=== PATIENT | female | born 1970 | race Caucasian/White ===

== ENCOUNTER 2019-09-02 07:59 | Outpatient (CLI) | payer BC, SELFPAY ==
--- NOTE | ~2019-09-02 | MM_ITS ---
EXAMINATION: MM screening [facility] BI w nel HISTORY: Screening mammogram TECHNIQUE: Craniocaudal and mediolateral oblique 3-D tomosynthesis images were obtained and synthetic 2-D images were generated. CAD analysis was submitted and interpreted. COMPARISON: Comparison to multiple prior studies sequentially, with oldest reviewed study dated 11/2012. BREAST PARENCHYMAL COMPOSITION: There are scattered areas of fibroglandular density. FINDINGS: The right breast is stable without evidence for malignancy. There is a developing cluster o f punctate calcifications in the upper outer quadrant of the left breast. IMPRESSION: 1. Developing cluster of punctate calcifications upper outer quadrant of the left breast. 2. Magnification views are recommended. BI-RADS Category 0: Incomplete: Needs additional imaging evaluation. Reviewed, dictated and finalized at location A. ING DIRECTOR IMPRESSION: 1. Developing cluster of punctate calcifications upper outer quadrant of the le ft breast. 2. Magnification views are recommended. BI-RADS Category 0: Incomplete: Needs additional imaging evaluation.
== END 2019-09-02 08:00 | disposition home or self-care (01) ==
PROVIDERS: PCP Family Medicine Adolescent Medicine; Visit Provider Family Medicine Adolescent Medicine
DX: Z12.31 Encounter for screening mammogram for malignant neoplasm of breast (principal); R92.8 Other abnormal and inconclusive findings on diagnostic imaging of breast
CPT/HCPCS: 77063; 77067

== ENCOUNTER 2019-09-28 12:42 | Outpatient (CLI) | payer BC, SELFPAY ==
--- NOTE | ~2019-09-28 | MMUS_ITS ---
EXAMINATION: MM diagnostic mammo unilat LT, US breast LT complete HISTORY: Follow-up left breast asymmetry TECHNIQUE: Additional 3-D tomosynthesis images of the left breast were performed and synthetic 2-D im ages were generated. CAD analysis was submitted and interpreted. High resolution left breast ultrasou nd was performed. COMPARISON: Comparison to multiple prior studies sequentially, with oldest reviewed study dated 07/2013. FINDINGS: MAMMOGRAPHIC FINDINGS: The breasts are heterogenously dense, which may obscure small masses. Left breast calcifications have a benign appearance. There are no suspicious masses, calcifications or architectural distortion in t he left breast to suggest malignancy. ULTRASOUND: High-resolution Limited left breast ultrasound: Normal heterogeneous echotexture without focal mass.. IMPRESSION: 1. No evidence for malignancy in the left breast. 2. Routine yearly screening mammogram and regular clinical breast examination are recommended. BI-RADS Category 2: Benign finding(s). Reviewed, dictated and finalized at location A. IMPRESSION: 1. No evidence for malignancy in the left breast. 2. Routine yearly screening mammogram and regular clinical breast examination a re recommended. BI-RADS Category 2: Benign finding(s).
== END 2019-09-28 12:43 | disposition home or self-care (01) ==
PROVIDERS: PCP Family Medicine Adolescent Medicine; Visit Provider Family Medicine Adolescent Medicine
DX: R92.8 Other abnormal and inconclusive findings on diagnostic imaging of breast (principal)
CPT/HCPCS: 76641; 77065

== ENCOUNTER 2020-11-23 08:28 | Outpatient (CLI) | payer BC, SELFPAY ==
--- NOTE | ~2020-11-23 | MM_ITS ---
EXAMINATION: MM screening [facility] BI w nel HISTORY: Screening mammogram TECHNIQUE: Craniocaudal and mediolateral oblique 3-D tomosynthesis images were obtained and synthetic 2-D images were generated. CAD analysis was submitted and interpreted. COMPARISON: 09/28/2019 diagnostic left mammogram and complete left breast ultrasound examination 09/02/2019, 08/06/2018, 06/12/2017 bilateral digital screening mammogram examinations BREAST PARENCHYMAL COMPOSITION: There are scattered areas of fibroglandular density. FINDINGS: There is no evidence of suspicious mass, calcification, or architectural distortion to sugg est malignancy in either breast. There has been no suspicious interval change. IMPRESSION: 1. No mammographic evidence of malignancy. 2. Recommend routine screening mammography in one year. BI-RADS Category 1: Negative Reviewed, dictated and finalized at location A.
== END 2020-11-23 08:29 | disposition home or self-care (01) ==
PROVIDERS: PCP Family Medicine Adolescent Medicine; Visit Provider Family Medicine Adolescent Medicine
DX: Z12.31 Encounter for screening mammogram for malignant neoplasm of breast (principal)
CPT/HCPCS: 77063; 77067

== ENCOUNTER 2022-02-14 07:23 | Outpatient (CLI) | payer BC, SELFPAY ==
--- NOTE | ~2022-02-14 | MM_ITS ---
EXAMINATION: MM screening [facility] BI w nel HISTORY: Screening mammogram TECHNIQUE: Craniocaudal and mediolateral oblique 3-D tomosynthesis images were obtained and synthetic 2-D images were generated. CAD analysis was submitted and interpreted. COMPARISON: 11/23/2020, 09/28/2019, 09/02/2019 BREAST PARENCHYMAL COMPOSITION: There are scattered areas of fibroglandular density. FINDINGS: Scattered benign-appearing calcifications are present. There is no suspicious mass, calcifi cation, or architectural distortion to suggest malignancy in either breast. There has been no suspici ous interval change. IMPRESSION: 1. No mammographic evidence of malignancy. 2. Recommend routine screening mammography in one year. BI-RADS Category 2: Benign finding(s). Reviewed, dictated and finalized at location A.
== END 2022-02-14 07:24 | disposition home or self-care (01) ==
PROVIDERS: PCP Family Medicine Adolescent Medicine; Visit Provider Family Medicine Adolescent Medicine
DX: Z12.31 Encounter for screening mammogram for malignant neoplasm of breast (principal)
CPT/HCPCS: 77063; 77067

== ENCOUNTER → 2022-09-23 10:45 | Outpatient (CLI) | payer BC, SELFPAY | PROVIDERS: PCP Family Medicine Adolescent Medicine; Visit Provider Family Medicine Adolescent Medicine | DX: M25.561 Pain in right knee (principal); M25.562 Pain in left knee | CPT/HCPCS: 73562 ==

== ENCOUNTER 2023-03-11 11:15 | Outpatient (CLI) | payer BC, SELFPAY ==
--- NOTE | ~2023-03-11 | MMUS_ITS ---
EXAMINATION: MM diagnostic [facility] BI w nel, US breast LT limited HISTORY: Palpable lump of the lower left breast TECHNIQUE: Craniocaudal, mediolateral, and mediolateral oblique 3-D tomosynthesis images of the breas ts were performed and synthetic 2-D images were generated. CAD analysis was submitted and interpreted . High resolution limited left breast ultrasound was performed. COMPARISON: 02/14/2022, 11/23/2020, 09/28/2019, 09/02/2019 BREAST PARENCHYMAL COMPOSITION: There are scattered areas of fibroglandular density. FINDINGS: MAMMOGRAPHIC FINDINGS: Right breast: No suspicious mass, calcification, or architectural distortion are identified to sugges t malignancy. There has been no suspicious interval change. Left breast: There is a 5 mm x 4 mm oval, circumscribed, equal density mass in the anterior third of the breast at the 6:00 location, 4 cm from the nipple corresponding to the palpable abnormality of co ncern. No suspicious calcification or architectural distortion are identified. ULTRASOUND: There is a 5 mm x 4 mm oval, circumscribed, parallel, anechoic mass with no posterior features or int ernal vascularity at the 6:00 location, 4 cm from the nipple, consistent with a cyst. IMPRESSION: 1. No mammographic or sonographic evidence of malignancy. 2. Recommend routine screening mammography in one year. BI-RADS Category 2: Benign finding(s). Reviewed, dictated and finalized at location B. IMPRESSION: 1. No mammographic or sonographic evidence of malignancy. 2. Recommend routine screening mammography in one year. BI-RADS Category 2: Benign finding(s).
== END 2023-03-11 11:16 | disposition home or self-care (01) ==
PROVIDERS: PCP Family Medicine Adolescent Medicine; Visit Provider Obstetrics & Gynecology
DX: N63.20 Unspecified lump in the left breast, unspecified quadrant (principal); R92.2 Inconclusive mammogram
CPT/HCPCS: 76642; 77062; 77066; G0279

== ENCOUNTER 2024-03-17 15:41 | Outpatient (CLI) | payer BC, SELFPAY ==
--- NOTE | ~2024-03-17 | MM_ITS ---
EXAMINATION: MM screening [facility] BI w nel HISTORY: Screening TECHNIQUE: Craniocaudal and mediolateral oblique 3-D tomosynthesis images were obtained and synthetic 2-D images were generated. CAD analysis was submitted and interpreted. COMPARISON: Comparison to multiple prior studies sequentially, with oldest reviewed study dated 08/06. BREAST PARENCHYMAL COMPOSITION: Not dense: There are scattered areas of fibroglandular density. FINDINGS: There is no evidence of suspicious mass, calcification, or architectural distortion to sugg est malignancy in either breast. There has been no suspicious interval change. IMPRESSION: 1. No mammographic evidence of malignancy. 2. Recommend routine screening mammography in one year. BI-RADS Category 1: Negative Reviewed, dictated and finalized at location B.
== END 2024-03-17 15:42 | disposition home or self-care (01) ==
LOC: ANHIMG 15:43
PROVIDERS: PCP Family Medicine Adolescent Medicine; Visit Provider Obstetrics & Gynecology
DX: Z12.31 Encounter for screening mammogram for malignant neoplasm of breast (principal)
CPT/HCPCS: 77063; 77067

== ENCOUNTER 2024-07-29 07:29 | Outpatient (CLI) | payer BC, SELFPAY ==
--- NOTE | ~2024-07-29 | XR_ITS ---
EXAM: XR shoulder LT min 2V DATE: 07/29/2024 07:53 HISTORY: Left shoulder pain . COMPARISON: None available. FINDINGS: Normal mineralization. No fracture or dislocation. No lytic or blastic lesion. Joint space s are maintained. No erosion or periosteal change. Soft tissues within normal limits. Coronary artery stent. IMPRESSION: Unremarkable left shoulder radiograph findings. Reviewed, dictated and finalized at location K. SEAM MACHINE OPERATOR
== END 2024-07-29 07:30 | disposition home or self-care (01) ==
PROVIDERS: PCP Family Medicine Adolescent Medicine; Visit Provider Family Medicine Adolescent Medicine
DX: M25.512 Pain in left shoulder (principal)
CPT/HCPCS: 73030

== ENCOUNTER 2025-04-02 11:52 | Outpatient (CLI) | payer BC, SELFPAY ==
--- NOTE | ~2025-04-02 | XR_ITS ---
XR hand RT 2V 04/02/2025 12:04 Indication: Right hand pain Procedure: 2 views right hand Comparison: No prior studies for comparison. Findings: No fracture, subluxation or dislocation. No significant soft tissue abnormality. No foreign bodies. Impression: 1: No significant bone or joint abnormality. Reviewed, dictated and finalized at location O. Impression: 1: No significant bone or joint abnormality.
== END 2025-04-02 11:53 | disposition home or self-care (01) ==
LOC: MICIMG 11:53
PROVIDERS: PCP Nurse Practitioner; Visit Provider Nurse Practitioner
DX: M79.641 Pain in right hand (principal)
CPT/HCPCS: 73120

== ENCOUNTER 2025-05-25 14:44 | Outpatient (CLI) | payer BC, SELFPAY ==
--- NOTE | ~2025-05-25 | MM_ITS ---
EXAMINATION: MM screening raul BI w nel HISTORY: Screening TECHNIQUE: Craniocaudal and mediolateral oblique 3-D tomosynthesis images were obtained and synthetic 2-D images were generated. CAD analysis was submitted and interpreted. COMPARISON: Comparison to multiple prior studies sequentially, with oldest reviewed study dated 09/02/2019. BREAST PARENCHYMAL COMPOSITION: Not dense: There are scattered areas of fibroglandular density. FINDINGS: There are new masses of the left breast involving the lower inner quadrants in the lower outer quadrant. The right breast is stable without evidence for malignancy. IMPRESSION: 1. New left breast masses. 2. Additional mammographic views and possible breast ultrasound are recommended. BI-RADS Category 0: Incomplete: Needs additional imaging evaluation. Reviewed, dictated and finalized at location B. ECOLOGICAL ONCOLOGIST IMPRESSION: 1. New left breast masses. 2. Additional mammographic views and possible breast ultrasound are recommended . BI-RADS Category 0: Incomplete: Needs additional imaging evaluation.
--- OUTSIDE RECORDS SUMMARY | 2025-05-25 19:07 | XMS_ITS | Clinical Summary ---
Author Organization [facility] [employer] Address [address] [place] [address] Care Team Providers Care Disk Recoater Name Role Phone Unavailable Primary Care Provider Unavailabl e Source Comments [facility] [employer],non-owned Affiliates and Associated Physician Practices is amultiple site organization consisting of ambulatory clinics and hospital sitesin [place], [place] and [place]. This disclosure is being madepursuant to the Care Everywhere program and may not contain all information available regarding this patient. Last updated 18.[facility] [employer] Medications * Be aware that medications may not be up to date on this document. Alwaysverify current medications with the patient. metoprolol tartrate (LOPRESSOR) 25 MG tablet TAKE ONE-HALF TABLET BY MOUTH TWICE A DAY 11/28/2020 Active rosuvastatin (CRESTOR) 10 MG tablet TAKE ONE TABLET BY MOUTH ONCE DAILY 03/17/2020 Active zinc gluconate 50 MG tablet Take 50 mg by mouth once daily Active amLODIPine (NORVASC) 5 MG tablet Take 5 mg by mouth once daily Active ASPIRIN 81 PO Active Social History Tobacco Use Types Packs/Day Years Used Date Smoking Tobacco: Never Assessed Comments Unknown Sex and Gender Information Value Date Recorded Sex Assigned at Not on file Legal Sex Female 7:19 PM CDT Gender Identity Not on file Sexual Orientation Not on file Last Filed Vital Signs Vital Sign Reading Time Taken Comments Blood Pressure - - Pulse 72 02/08/2021 10:09 AM CDT Temperature 36.7 C (98 F) 02/08/2021 10:09 AM CDT Respiratory Rate 14 02/08/2021 10:09 AM CDT Oxygen Saturation 98% 02/08/2021 10:09 AM CDT Inhaled Oxygen Concentration - - Weight 64.4 kg (142 lb) 02/08/2021 10:09 AM CDT Height 165.1 cm (5' 5) 02/08/2021 10:09 AM CDT Body Mass Index 23.63 02/08/2021 10:09 AM CDT Plan of Treatment Health Maintenance Due Date Last Done Comments COLOGUARD (AGES 45-75) - COL ON CA SCREENING 1968 COLON MONITORING 1968 COLONOSCOPY - COLON CA SCREENING 1968 CT COLONOGRAPHY - COLON CA SCREENING 1968 Colorectal Cancer Screening 1968 FIT - COLON CA SCREENING 1968 FLEX SIG - COLON CA SCREENING 1968 MAMMOGRAM 1968 HIV SCREENING 1983 HEPATITIS C SCREENING 06/29/1986 DTAP/TDAP/TD VACCINES (1 - Tdap) 1987 HEPATITIS B VACCINE (1 of 3 - 19+ 3-dose series) 1987 PNEUMOCOCCAL VACCINE 50+ (1 of 1 - PCV) 2018 ZOSTER VACCINE (1 of 2) 2018 DEPRESSION SCREENING 07/12/2024 COVID-19 VACCINE (3 - 2024-2 6 season) 2025 10/05/2020, 09/12/2020 INFLUENZA VACCINE (#1) 2025 05/20/2020 HIB VACCINE Aged Out No longer eligi ble based on patient's age to complete this topic HPV VACCINE Aged Out No longer eligi ble based on patient's age to complete this topic MENINGOCOCCAL (Group B) VACCINE SHARED DECISION-MAKING Aged Out No longer eligible based on patient's age to complete this topic MENINGOCOCCAL GROUPS A/C/Y/W VACCINE Aged Out No longer eligible b ased on patient's age to complete this topic Insurance [employer]
--- OUTSIDE RECORDS SUMMARY | 2025-05-25 19:07 | XMS_ITS | Clinical Summary ---
Author Organization [facility] [place] [address] Address [address] [place] [address] Care Team Providers Care Casino Supervisor Name Role Phone Binu Garay MD Primary Care Prov ider Allergies Active Allergy Reactions Criticality Noted Date Comments Codeine Nausea only Low Medications aspirin 81 mg tablet take 1 tablet by oral route every day 0 0 6 Active nitroglycerin (NITROSTAT) 0.[address] 1 tablet by sublingual route at the 1st sign of attack; may repeat every 5 min until relief; if pain persists after 3 tablets in 15 min, prompt medical attention is recommended 0 0 6 Active multivitamin-ir on-folic acid (CENTRUM COMPLETE) 18-400 mg-mcg tablet take 1 tablet by oral route every day with food 0 0 6 Active amLODIPine (NORVASC) 5 mg tablet take 1 tablet by oral route every day 0 0 7 Active zinc 50 mg tablet Take 50 mg by mouth daily Active estradioL (ESTRACE) 0.01 % (0.1 mg/gram) vaginal cream INSERT 0.5 GRAMS PER VAGINA NIGHTLY FOR 30 DAYS, THEN 3 TIMES PER WEEK 2 Active magnesium gluconate (MAGONATE) 27.5 mg magne- sium (500 mg) tabletIndicatio ns:hypomagnesem ia Take 1 tablet (500 mg total) by mouth 2 (two) times a day Active rosuvastatin (CRESTOR) 10 mg tablet TAKE 1 TABLET(10 MG) BY MOUTH DAILY 90 tablet 2 5 Active metoprolol tartrate (LOPRESSOR) 25 mg immediate release tablet TAKE 1/2 TABLET(12.5 MG) BY MOUTH TWICE DAILY 90 tablet 1 5 Active Active Problems Problem Noted Date Diagnosed Date History of COVID-19 01/28/2022 Migraine 02/14/2020 Presence of stent in coronary artery 01/10/2019 Hyperlipidemia LDL goal <70 06/01/2017 Raynaud's phenomenon 11/24/2016 Overview (12/04/2016): Raynaud's phenomenon without gangrene Chest pain on exertion 04/30/2016 Overview (10/16/2016): Chest pain on exertion Coronary artery disease of n ative artery of [place] heart with stable angina pectoris 01/23/2016 Overview (10/14/2016): Coronary artery disease involving [place] coronary artery of [place] heart without angina pectoris Migraine 01/23/2016 Overview (10/15/2016): Migraine without status migrainosus, not intractable, unspecified migraine type Dizziness 01/23/2016 Overview (10/15/2016): Dizziness Essential hypertension 01/23/2016 Overview (10/16/2016): Hypertension, essential Encounters Date Type Department Care Team Description 03/07/2025 1:15 PM CDT Office Visit [facility] [address] [place] [address] Nicko Boles MD Coronary artery disease of [place] artery of [place] heart with stable angina pectoris (Primary Dx); Essential hypertension; Hyperlipidemia LDL goal <70; Raynaud's phenomenon without gangrene from Last 3 Months Medical History Medical History Date Comments Hx Other Medical CAD, HTN, histo ry of migraines; Comments: MAF 01/23/2016 - Family History Medical History Relation Name Comments Hepatitis Father Hepatitis C; Relation Name Status Comments Father Social History Tobacco Use Types Packs/Day Years Used Date Smoking Tobacco: Never Smokeless Tobacco: Never Tobacco Cessation:Counseling Given: Yes Alcohol Use Standard Drinks/Week Comments No 0 (1 standard drink = 0.6 oz pur e alcohol) Comments Unknown Sex and Gender Information Value Date Recorded Sex Assigned at Not on file 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 Gender Identity Not on file Sexual Orientation Not on file Last Filed Vital Signs Vital Sign Reading Time Taken Comments Blood Pressure 110/66 03/07/2025 1:08 PM CDT Pulse 74 03/07/2025 1:08 PM CDT Temperature - - Respiratory Rate - - Oxygen Saturation 95% 03/07/2025 1:08 PM CDT Inhaled Oxygen Concentration - - Weight 67.1 kg (148 lb) 03/07/2025 1:08 PM CDT Height 165.1 cm (5' 5) 03/07/2025 1:08 PM CDT Body Mass Index 24.63 03/07/2025 1:08 PM CDT Plan of Treatment Health Maintenance Due Date Last Done Comments Breast Cancer Screening-Mammogram 1968 Cervical Cancer Screening 1968 Colon Cancer Screening-Colonoscopy 1968 Depression Screening 1968 Hepatitis C Screening 1968 DTaP/Tdap/Td Vaccine (1 - Tdap) 1979 Hepatitis B Screening 1986 Regular Well Visit/Exam 18-64 1986 Pneumococcal vaccine <65 (1 of 2 - PCV) 1987 Zoster Vaccine (1 of 2) 2018 Influenza Vaccine (#1) 2025 7, 04/20/2016, 04/17/2015 Procedures Procedure Name Priority Date/Time Associated Diagnosis Comments POCT LIPID PANEL Routine 03/07/2025 1:11 PM CDT Coronary artery disease of [place] artery of [place] heart with stable angina pectoris Hyperlipidemia LDL goal <70 from Last 3 Months Results * POCT lipid panel (03/07/2025 1:11 PM CDT) Cholesterol, POC 150 <200 MG/DL HDL, POC 60 >=40 mg/dL Triglycerides, POC 81 <=149 mg/dL LDL Cholesterol POC 74 <=129 mg/dL Chol/HDL Ratio, POC 1.2 NONE Non-HDL Cholesterol, POC 90 NONE mg/dL Cholesterol Total, POC 150 30 - 199 mg/dL Capillary blood 03/07/2025 1 :11 PM CDT Nicko Boles MD POINT OF CARE TEST ORDERA RODNEYS Final Result from Last 3 Months Insurance [place] Care Teams Casino Supervisor Relationship Specialty Start Date End Date Binu Garay MD PCP - General 10/09/16
--- OUTSIDE RECORDS SUMMARY | 2025-05-25 19:07 | XMS_ITS | Data Portability ---
Author Organization [facility] Address [address] [place] [address] Care Team Providers Care Traveling Buyer Name Role Phone CANDIE DUNCAN Primary Care Provider Assessment Encounter Date Assessment Date Assessment LastModified by Organization Details LastModified Time 10/01/2021 10/01/2021 Pt and I both uncertain what the substance is in her vagina, however it was removed. discussed estrace cream for atrophy, she is willing to try. script sent WWE overdue, will schedule in 2 mos and FU then. [email or web address] Not available 10/01/2021 14:41:23 03/31/2022 03/31/2022 healthy female exam/menopause patient declines std testing pap done, discussed guidelines mammogram UTD colonoscopy/colo guard due 2024 dexa baseline Encouraged weight bearing exercise and 1500mg daily of Calcium with Vitamin D FU 1 year or prn [email or web address] Not available 04/01/2022 08:52:28 01/13/2023 01/13/2023 Annual gynecological exam performed. Patient will come back in a year unless there are new symptoms. [email or web address] Not available 01/13/2023 17:06:21 02/17/2023 02/17/2023 diagnostic mammo left ordered screening due in april [email or web address] Not available 02/17/2023 17:20:34 02/16/2024 02/16/2024 Annual gynecological exam performed. Patient will come back in a year unless there are new symptoms. [email or web address] Not available 02/16/2024 16:54:31 Plan of Treatment Reminders Order Date Submit Date Provider Last Modified By Organization Details Last Modified Time Details Appointments None recorded . Lab None recorded . Referral None recorded . Procedures None recorded . Surgeries None recorded . Imaging MAMMO, screenin g, unilater al 2022 023 [email or web address] Not available 09:57:49 MAMMO, diagnost ic, unilater al 2022 023 [email or web address] Not available 09:57:19 Medication Orders estradio l 0.01% (0.1 mg/gram) vaginal cream 2021 022 [facility] [id number] [facility], [facility] [place], [address], 2 18:58:17 Estrace 0.01% (0.1 mg/gram) vaginal cream 2021 022 [facility] [id number] In [facility] [address] [place], [address], 2 14:40:16 Patient TargetsNo targets recorded. Patient InstructionsNo instructions recorded. Reason for Referral None Reported. Results Created Date Observation Date Name Description Value Unit Range Abnormal Flag Note LastModifiedBy Organization Detail LastModifiedTime 03/31/20 22 03/31/2022 IMAGE GUIDE D PAP AND HPV REGAR DLESS image guided Pap, HPV regardless of Pap result SEE RESULT S BELOW abnormal CASE REPOR T: Cytol ogy Gynec ologi tao Repor t Case: [id number] Autho andrew norton Provi jany: Bindu Campbell MD Colle cted: 03/31 180 Order ing Locat ion: [place] Patho logy Recei carolyn: 04/01 0123 First Scree n: Lauri vines, Cierra ed, [place] Patho logis t: Kyleigh Silva MD Speci men: Scree baldev Pap - Image d, Cervi x STATE MENT OF ADEQU ACY: Satis facto ry for evalu ation Trans forma tion zone compo nent prese nt FINAL DIAGN OSIS: Epith elial Cell Abnor malit y, Squam ous Cell: Atypi tao Squam ous Cells of Undet ermin ed Desiree roche ce (ASC- [place]). Elect yaneli romo d by Kyleigh Silva MD on 2021 at 12:58 PM ----- ----- ----- ----- ----- ----- ----- ----- ----- ----- ----- ----- ----- ----- ----- ----- ----- ---- HPV RESUL TS: HPV mRNA E6/E7 : No HPV mRNA Detec ansley NOTE: This high risk HPV mRNA assay detec ts fourt een high- risk HPV types (16, 18, 31, 33, 35, 39, 45, 51, 52, 56, 58, 59, 66, 68) witho ut diffe renti ation . COMME NT: Note: This speci men was revie wed by a Cytot echno logis t and/o r Patho logis t (as indic ated in this repor t) after evalu ation using the Thinp rep Imagi ng Syste m. CLINI TAO INFOR MATIO N: Menst rual Statu s: LMP (if appli cable ): Clini tao Histo ry/Pr eviou s Pap: Type of Neopl lico (if appli cable ): Desiree meza Clini tao Findi ngs: Other Histo ry: Hormo sebastián (if appli cable ): SUGGE STED FOLLO W-UP: Follo w up as warra nted, based on curre nt guide lines and indiv idual patie nt consi derat ions. Not Available [facility] [address], [place], [address], 04/06/2022 14:00:46 01/14/20 23 01/13/2023 IMAGE GUIDE D PAP AND HPV REGAR DLESS image guided Pap, HPV regardless of Pap result SEE RESULT S BELOW CASE REPOR T: Cytol ogy Gynec ologi tao Repor t Case: [id number] Autho zebelyssa cierra Provi jany: Camille Pryor, AVANI Osullivan cted: 01/13 1716 Order ing Locat ion: [place] Patho gracia Recei carolyn: 01/14 0203 First Scree n: Lizeth Cline ay, CT Rescr een: Erika Cheek Speci men: Scree baldev Pap - Image d, Cervi x STATE MENT OF ADEQU ACY: Satis facto ry for evalu ation Trans forma tion zone compo nent absen t The absen ce of an endoc ervic al compo nent was confi rmed by an addit ional yamila godfrey. FINAL DIAGN OSIS: Negat amber for Intra epith elial Cristina bergeron or Ann el (NIL) . Elect yaneli romo d by Erika Cheek on 023 at 2:49 PM ----- ----- ----- ----- ----- ----- ----- ----- ----- ----- ----- ----- ----- ----- ----- ----- ----- ---- HPV RESUL TS: HPV mRNA E6/E7 : No HPV mRNA Detec ansley NOTE: This high risk HPV mRNA assay detec ts fourt een high- risk HPV types (16, 18, 31, 33, 35, 39, 45, 51, 52, 56, 58, 59, 66, 68) witho ut diffe renti ation . COMME NT: This speci men was revie wed by a Cytot echno logis t and/o r Patho logis t (as indic ated in this repor t) after evalu ation using the Thinp rep Imagi ng Syste m. CLINI TAO INFOR MATIO N: Menst rual Statu s: LMP (if appli cable ): Clini tao Histo ry/Pr eviou s Pap: Type of Neopl lico (if appli cable ): Signi fican t Clini tao Findi ngs: Other Histo ry: Hormo sebastián (if appli cable ): PAP EDUCA GREGG L NOTE: The Pap Test is a scree baldev test with an inher ent false negat amber rate. Liqui d-bas ed sampl ing may decre ase, but will not elimi lawrence, false negat amber resul ts. A negat amber resul t does not precl ude the prese nce and/o r devel opmen t of disea se, since the prese nce of abnor mal cells in the sampl e depen ds on the locat ion of the lesio n and sampl ing techn ique. Paulino nued regul ar scree baldev is the best metho d of cance r preve ntion . If repor ansley cytol ogic findi ng do not corre late with physi tao and/o r histo rical findi ngs, furth er inves tigat ion is recom pierre d, as clini libby pillai nted. Not Available [facility] (Lab) [address] [facility], [place], [address], 01/14/2023 15:53:50 02/16/20 24 02/16/2024 IMAGE GUIDE D PAP AND HPV REGAR DLESS image guided Pap, HPV regardless of Pap result SEE RESULT S BELOW CASE REPOR T: Cytol ogy Gynec ologi tao Repor t Case: [id number] Autho andrew g Provi jnay: Vadim Kinsey MD Colle cted: 02/15 1750 Order ing Locat ion: [place] Patho logy Recei carolyn: 02/16 0059 First Scree n: Sushma Merrill ret, CT Speci men: Scree baldev Pap - Image d, Cervi x STATE MENT OF ADEQU ACY: Satis facto ry for evalu ation Trans forma tion zone compo nent prese nt ----- ----- ----- ----- ----- ----- ----- ----- ----- ----- ----- ----- ----- ----- ----- ----- ----- ---- FINAL DIAGN OSIS: Negat amber for Intra epith elial Lesio elyssa or Ann el (NIL) . Elect yaneli romo d by Sushma Merrill ret, CT on 2023 at 12:28 PM ----- ----- ----- ----- ----- ----- ----- ----- ----- ----- ----- ----- ----- ----- ----- ----- ----- ---- HPV RESUL TS: HPV mRNA E6/E7 : No HPV mRNA Detec ansley NOTE: This high risk HPV mRNA assay detec ts fourt een high- risk HPV types (16, 18, 31, 33, 35, 39, 45, 51, 52, 56, 58, 59, 66, 68) witho ut diffe renti ation . COMME NT: This speci men was revie wed by a Cytot echno logis t and/o r Patho logis t (as indic ated in this repor t) after evalu ation using the Thinp rep Imagi ng Syste m. CLINI TAO INFOR MATIO N: Menst rual Statu s: LMP (if appli cable ): Clini tao Histo ry/Pr eviou s Pap: Type of Neopl lico (if appli cable ): Signi fican t Clini tao Findi ngs: Other Histo ry: Hormo sebastián (if appli cable ): PAP EDUCA GREGG L NOTE: The Pap Test is a scree baldev test with an inher ent false negat amber rate. Liqui d-bas ed sampl ing may decre ase, but will not elimi lawrence, false negat amber resul ts. A negat amber resul t does not precl ude the prese nce and/o r devel opmen t of disea se, since the prese nce of abnor mal cells in the sampl e depen ds on the locat ion of the lesio n and sampl ing techn ique. Paulino nued regul ar scree baldev is the best metho d of cance r preve ntion . If repor ansley cytol ogic findi ng do not corre late with physi tao and/o r histo rical findi ngs, furth er inves tigat ion is recom pierre d, as clini libby pillai nted. Not Available [facility] (Lab) [address], [place], [address], 02/23/2024 13:32:06 03/12/20 23 03/11/2023 imagi ng/di agnos tic resul t No observ ation record ed. [address], [place], [address], 03/16/2023 09:48:42 03/12/20 23 03/11/2023 imagi ng/di agnos tic resul t No observ ation record ed. [address], [place], [address], 03/16/2023 08:09:39 03/17/20 24 03/17/2024 MAMMO , scree baldev, digit al, bilat eral No observ ation record ed. [address], [place], [address], 03/21/2024 14:22:40 05/25/20 25 05/25/2025 imagi ng/di agnos tic resul t No observ ation record ed. [facility] [address], [place], [address], 05/25/2025 17:35:09 Result Notes None recorded. Problems Name Problem SNOMED Code Status Onset Date Resolution Date Notes Provider Name and Address Organization Details Recorded Time Coronary arteriosclero sis 07111261 Active 2021 Bindu Joseph MD [address], [place], [address], [facility] 2 14:13:30 Essential hypertension 47556075 Active 2021 Bindu Joseph MD [address], [place], [address], [facility] 14:13:40 Atrophic vaginitis 06200283 Active 2021 Bindu Joseph MD [address], [place], [address], [facility] 14:14:16 Problem Notes None recorded. Procedures Surgical History Date Name Laterality Status Provider Name and Address Organization Details Recorded Time 03/31/20 22 Date of Last Pap Smear completed [facility] 01/13/2023 17:07:34 02/10/20 22 Date of Last Colonoscopy completed [facility] 03/31/2022 18:07:10 11/24/19 21 Date of Last Mammogram completed [facility] 01/13/2023 17:06:40 07/12/19 16 procedure on heart completed [facility] 10/01/2021 14:03:23 Other completed [facility] 01/13/2023 17:06:47 Imaging Results None recorded. Procedure Notes None recorded. Medical Equipment None Reported. Allergies Allergen ID Allergen Name Allergen Category Reaction Reaction Severity Criticality Documentation Date Start Date Code Code System Note Provider Name and Address Organization Details Recorded Time 69555 codeine medicatio n Not available Not available Not available 10/01/2021 2670 RxNorm Elsie Arauz [facility], [facility] 14:01:47 Medications Name Sig Start Date Stop Date Status Note LastModified by Organization Details LastModified Time doxycycline hyclate 100 mg capsule TAKE 1 CAPSULE BY MOUTH TWICE DAILY 01/13 completed Not Available Not Available Not Available fluconazole 150 mg tablet TAKE ONE TABLET BY MOUTH TODAY, THEN REPEAT IN 72 HOURS 10/01 completed Not Available Not Available Not Available benzonatate 200 mg capsule TAKE 1 CAPSULE BY MOUTH THREE TIMES DAILY NEEDED FOR COUGH active Not Available Not Available No t Available amlodipine 5 mg tablet TAKE 1 TABLET BY MOUTH DAILY active Not Available Not Available No t Available baclofen 20 mg tablet TAKE 1 TABLET BY MOUTH TWICE DAILY NEEDED FOR MUSCLE SPASM 01/13 completed Not Available Not Available Not Available cephalexin 500 mg capsule TAKE 1 (ONE) CAPSULE BY MOUTH 2 TIMES DAILY FOR 7 DAYS 10/01 completed Not Available Not Available Not Available polymyxin B sulfate 10,000 unit-trimet hoprim 1 mg/mL eye drops INSTILL 1 (ONE) DROP INTO RIGHT EYE 4 TIMES DAILY FOR 7 DAYS 10/01 completed Not Available Not Available Not Available estradiol 0.01% (0.1 mg/gram) vaginal cream INSERT 0.5 GRAM VAGINALLY 3 TIMES EVERY WEEK active Not Available Not Available No t Available rosuvastati n 10 mg tablet TAKE 1 TABLET BY MOUTH EVERY DAY active Not Available Not Available No t Available metoprolol tartrate 25 mg tablet TAKE 1/2 TABLET BY MOUTH TWICE A DAY active Not Available Not Available No t Available Vitals Date Recorded Body height Body mass index (BMI) Body weight Systolic And Diastolic Provider Name and Address Organization Details Last Updated DateTime 10/01/2021 167.64 cm 23.4 kg/m2 56106.89 g 103/66 mm[Hg] Elsie Arauz [facility] 10/01/2021 14:01:36 Date Recorded Body height Body mass index (BMI) Body weight Systolic And Diastolic Provider Name and Address Organization Details Last Updated DateTime 01/13/2023 167.64 cm 23.7 kg/m2 25781.08 g 111/72 mm[Hg] Oneyda Carter [facility] 01/13/2023 17:06:36 Date Recorded Body height Body mass index (BMI) Body weight Systolic And Diastolic Provider Name and Address Organization Details Last Updated DateTime 02/16/2024 167.64 cm 23.9 kg/m2 22462.67 g 100/63 mm[Hg] Carol Hong [facility] 02/16/2024 16:56:59 Date Recorded Body height Body mass index (BMI) Body weight Systolic And Diastolic Provider Name and Address Organization Details Last Updated DateTime 02/17/2023 167.64 cm 23.2 kg/m2 99083.3 g 109/71 mm[Hg] [facility] 02/17/2023 16:27:58 Date Recorded Body height Body mass index (BMI) Body weight Systolic And Diastolic Provider Name and Address Organization Details Last Updated DateTime 03/31/2022 167.64 cm 23.4 kg/m2 05522.89 g 102/67 mm[Hg] [facility] 03/31/2022 18:06:57 Social History Question Answer Notes LastModified by Organizat ion Details LastModified Time Tobacco Smoking Status Never Smoker [email or web address] 02/17/2023 16:17:04 Do You Have An Advance Directive? No Information n ot available 01/13/2023 Are You Blind Or Do You Have Difficulty Seeing? No Information n ot available 01/13/2023 What Is Your Level Of Caffeine Consumption? Occasional Information not available 01/13/2023 How Much Tobacco Do You Chew? None Information not available 02/16/2024 In The 14 Days Before Symptom Onset, Have You Had Close Contact With A Laboratory-confirm ed COVID-19 While That Case Was Ill? No Information n ot available 01/13/2023 In The 14 Days Before Symptom Onset, Have You Had Close Contact With A Person Who Is Under Investigation For COVID-19 While That Person Was Ill? No Information not available 01/13/2023 Have You Been To An Area Known To Be High Risk For COVID-19? No Information not available 01/13/2023 Are You Deaf Or Do You Have Serious Difficulty Hearing? No Information not available 01/13/2023 What Type Of Diet Are You Following? REGULAR Information n ot available 01/13/2023 What Is The Highest Grade Or Level Of School You Have Completed Or The Highest Degree You Have Received? [id number] Information not available 01/13/2023 Have You Ever Been Counseled For Unhealthy Alcohol Use? No [email or web address] Information not available 02/17/2023 Do You Use Protection During Sex? No Information not available 01/13/2023 Do You Use Your Seat Belt Or Car Seat Routinely? Yes Information not available 01/13/2023 Do You Have Smoke And Carbon Monoxide Detectors In Your Home? Yes Information not available 01/13/2023 How Much Tobacco Do You Smoke? No Information not available 01/13/2023 Do You Use Sunscreen Routinely? No Information not available 01/13/2023 Has Tobacco Cessation Counseling Been Provided? No [email or web address] Information not available 02/17/2023 Have You Used IV Drugs? No Information not available 01/13/2023 Do You Have Difficulty Walking Or Climbing Stairs? No [email or web address] Information not available 02/17/2023 Sex: Unknown Functional Status Question Answer Note LastModified by Organizat ion Details LastModified Time Do you use any illicit or recreational drugs? No Information not available 10/01/2021 Do you or have you ever used any other forms of tobacco or nicotine? No [email or web address] Information not available 02/17/2023 What is your level of alcohol consumption? Occasional Information not available 10/01/2021 Are you able to walk independently without assistance or assistive devices? YESWOREST Information not available 01/13/2023 Are you able to care for yourself independently? Yes [email or web address] Information not available 02/17/2023 What is your occupation? N/A Information not available 01/13/2023 Do you have difficulty dressing, bathing, grooming, or toileting? No [email or web address] Information not available 02/17/2023 What is your exercise level? Occasional Information not available 01/13/2023 Mental Status Question Answer Note LastModified by Organization D etails LastModified Time Do you feel stressed (tense, restless, nervous, or anxious, or unable to sleep at night)? [id number] Information not available 02/16/2024 Family History Relationship Description Onset Age of this Age Resolved Age Notes LastModified by Organization Details LastModified Time Maternal Grandmother Diabetes mellitus [email or web address] Not available 2021 14:05:01 Maternal Grandmother Leukemia [email or web address] Not available 01/2024 16:42:06 Paternal Grandmother Diabetes mellitus [email or web address] Not available 2021 14:05:01 Mother Hypertensive disorder [email or web address] Not available 2021 14:05:21 Medical History Condition Response Allergies (Food, seasonal, environmental ) N Other N Drug/Latex Allergies/Reactions N Blood Transfusion N Breast Cancer N Dermatologic Disorders N Lung Disease N Defects or Inherited Disease N Breast Problem N Gestational Diabetes N Hematologic disorders N Anesthesia Complications N History of STI N Deep Vein Thrombosis N Polycystic ovary syndrome N Anxiety Disorder N Autoimmune disease N Arthritis N Polyps N Infertility N Acid Reflux (GERD) N History of abnormal pap N Cancer N Varicosities N Stroke N Neurologic/Epilepsy N Endometriosis N High Cholesterol Y Fibromyalgia N Headaches N Kidney Disease N Heart Problems N Thyroid Problems N Kidney or Bladder Problems N GI Problems N Eating Disorder N Anemia N Art (IVF or FET) N Psychiatric Illness N Ovarian Cancer N Diabetes N Pulmonary (TB, Asthma) N Hepatitis/Liver Disease N No Past Medical History N Eczema N Urinary Tract Infection N Abuse/Domestic Violence N Asthma N Trauma/Violence N Depression/ depression N Heart Disease Y Pre-Eclampsia N Hypertension Y Osteoporosis N Thrombophilias N Gynecological History Statement/Question Response Date of Last Mammogram 11/23/2020 Date of LMP 12/10/2018 N Was last menstrual period normal N STIs/STDs N Duration of Flow (days) 5 Current Control Method Menopause Age at First Child 21 If Post Menopausal, Age at Menopause 48 Date of Last Colonoscopy 02/09/2022 Frequency of Cycle (Q days) 26 Sexually Active? Y Age of first menstrual cycle 10 Date of Last Pap Smear 03/31/2022 Sexual Problems? Y LMP Approximate N Obstetrics History GPAL:G 3 P 2 0 1 2 Type Value Full Term 2 Spontaneous 1 Living 2 Total 3 Past Encounters Encounter ID Performer Location Encounter Start Date Encounter Closed Date Diagnosis/Indication Diagnosis SNOMED-CT Code Diagnosis ICD10 Code Diagnosis IMO Codes Diagnosis Note [id number] Bindu Joseph MD [facility] [address] [address] 10/01/2021 13:27:37 10/01/2021 15:12:57 Dyspareunia 71577001 N94.10 Atrophic vaginitis 62357 000 N95.2 Foreign carol dy in vagina 50853946 T19.2XXA [id number] Bindu Joseph MD [facility] [address] [address] 03/31/2022 17:47:18 04/01/2022 13:53:23 Gynecologic examination 72145334 Z01.419 Z11.51 Atrophic vaginitis 29162 000 N95.2 [id number] CURTIS Neal [facility] [address] [address] 01/13/2023 16:55:13 01/14/2023 17:50:21 Gynecologic examination 26133816 Z01.419 Take Calcium with Vitamin D 12-1500mg daily. Do monthly self breast exams. It is advised to get annual flu shot in the fall and she could obtain at [facility] or [facility] care clinic. If you haven't received the Tdap vaccine in the last 10 years you should obtain one as well. Have mammogram yearly, bone density every 2-3 years and colonoscop y every 5-10 years depending on findings and history. Engage in daily exercise of low impact aerobic exercise 45-60 minutes 4-5 times weekly. Avoid tobacco and illicit drugs as well as using moderation with alcohol intake less than 1-2 8 oz beverages daily. This lifestyle behavior pattern will lead to less health conditions and longer life span. If BMI greater than 25 weight watchers or dietary consult advised. Questions have been answered. Patient appears to understand instructio ns, but if you have any further questions call or respond to this email WWEpostmen opausallas t pap 03/31/22 - ASCUS, HPV (-)pap updated todaySTI testing declinedma mmogram UTDcologua rd UTD, due in 2 years per patientUTD with PCPusing vaginal estrace cream for relief of dryness/at rophy. Has had significan t improvemen t, no longer having pain with IC. Patient states her cardiologi st has cleared her to use vaginal estrogen. She will upload this to the portal.RTC in 1 year or sooner if needed Atrophic vaginitis 70108 000 N95.2 [id number] Bindu Joseph MD [facility] [address] [address] 02/17/2023 16:16:43 02/17/2023 17:28:27 Mass of left breast 9059073640 2394475 N63.20 Screening mammography 24 626415 Z12.31 right [id number] BAL BELLA MD [facility] [address] [address] 02/16/2024 16:42:00 02/17/2024 15:48:17 Gynecologic examination 78624780 Z01.419 Well woman care- Cervical cancer screening: Pap smear obtained today, will follow up on the results with the patient as they become available- Breast cancer screening: mammogram scheduled- Colon cancer screening: completed- HPV immunizati on: does not qualify- STD testing: declined- hereditary cancer screening: does not qualify for testing Health Concerns Section Related Observation LastModified by Organization Detai ls LastModified Time None Recorded Concern Status LastModified by Organization Details LastModified Time None Recorded Advance Directives Directive N: Payers Insurance Date Sequence Insurance Name Policy Number Policy [place] Covered Member ID [place] Member ID Guarantor Name 02/13/2024 1 [facility] [id number] Verna Soliman [id number] Verna Soliman Notes Date Note Type Note Provider Name and Address Organization Details Recorded Time 2 text/html Patient is a 51yo 3 years postmenopausal who presents for vaginal discomfort with intercourse. She is sexually active. Her PCP told her to use replens and it has helped a little and she can at least have sex. No itching, discharge, odor. Used monistat 9 mos ago. No bleeding. Denies foreign objects in her vagina. Concerns: last WWE: 2012 Depression: denies Domestic violence:denies Bindu Joseph MD [address], [place], [address], [facility] 10/01/2021 14:41:49 2 text/html Patient is a 51yo who presents for an annual exam. Doing well with estrace cream for atrophy. Has helped a lot with comfort during sex. States that it still feels weird on left at entrance sometimes. last pap- 2013 mammo-01/2022 colonoscopy-cologuard 02/2022 dexa-none menopause-around age 48 sexually active-y seatbelts-y exercise-y depression-denies domestic violence-denies tobacco-n concerns-n Bindu Joseph MD [address], [place], [address], [facility] 04/01/2022 08:52:54 3 text/html Annual Shaper Machine Hand Post-MenopausalReported by PatientGenitourinary symptomsFor menopausal symptoms, patient reportsno menopausal symptomsandnormal vaginal lubrication. For vaginal bleeding, patient reportshistory of menopause having occurredandno history of post menopausal bleeding. For urinary symptoms, patient reportsno hematuria,no incontinence,no nocturia, andno urinary frequency. For vulva, patient reportsno genital lesionandno vulvar atrophy. For vagina, patient reportsnormal vaginal dischargeandno vaginal atrophy.Breast symptomsFor breast, patient reportsno breast lump,no nipple discharge, andno breast pain.Psychological symptomsFor sexual complaints, patient reportsno sexual complaints. For psychological symptoms, patient reportsno depressionandno anxiety.Preventative measuresFor preventive measures, patient reportsencourage regular mammograms starting age 40,encourage self breast examination,encourage regular exercise,encourage no tobacco use, andmammogram performed within the past year. CURTIS Neal [address], [place], [address], [facility] 01/14/2023 16:52:23 3 text/html Pt is a 52yo here for a breast problem. She complains of lump in lower left breast for 2 weeks, has not changed, marble size. no other breast sx. Last mammogram: 04/2022 Last annual exam: 01/2023 Bindu Joseph MD [address], [place], [address], [facility] 02/17/2023 17:20:57 4 text/html Presents today for her annual well-woman exam. Denies abnormal vaginal discharge. She is sexually active and denies dyspareunia. She has not noticed any changes or masses in her breasts. Previously had a breast lump evaluated with no concern for cancer. next mammogram in 2-3 weeks. Menopausal, no PMB. BAL BELLA MD [address], [place], [address], [facility] 02/16/2024 17:32:47 OBGyn Episode Ob Episode Information Episode Created Date Number of Fetuses Patient Bloodtype Patient rh Status Prepregnancy Weight lbs Domestic Partner Domestic Partner Phone Father Name Molding [employer] Trim Installer Status 10/02/19 22 1 CLOSED Fetus Data First Name Last Name Admitted to NICU Weight (g) Sex Living Outcome Pediatric Complications Fetus ID Race Codes Race Delivery Type F [id number] Vaginal Delivery Elver Calculation Initial Elver Date Initial Exam Date Initial Exam Provider Initial Ultrasound Date Last Menstrual Period Date Ultra Sound Weeks Gestation 0 Eighteen To Twenty Week Elver Update Ultra Sound Date Fundal Height At Umbil Quickening Date Ultra Sound Latest Weeks Gestation Final Elver Confirmed By Final Elver Confirmed Date Final Elver Date Ultra Sound Latest Days Gestation 0 0 Menstrual History Last Menstrual Date Menses Monthly On Bcp Conception Prior Menses Frequency Hcg Plus Date Menarche Onset Age Delivery Information Delivery Date Delivery Type Labor Anesthesia Weeks Gestation Incision Type Labor Labor Length Hrs Delivered By Post Complications Tubal Sterilization Discharge Date Comments 2 Discharge Information Feeding Method Contraceptive Method Maternal HG B and HCT Levels Ob Episode Information Episode Created Date Number of Fetuses Patient Bloodtype Patient rh Status Prepregnancy Weight lbs Domestic Partner Domestic Partner Phone Father Name Molding And Trim Installer Status 10/02/19 22 1 CLOSED Fetus Data First Name Last Name Admitted to NICU Weight (g) Sex Living Outcome Pediatric Complications Fetus ID Race Codes Race Delivery Type F [id number] Vaginal Delivery Elver Calculation Initial Elver Date Initial Exam Date Initial Exam Provider Initial Ultrasound Date Last Menstrual Period Date Ultra Sound Weeks Gestation 0 Eighteen To Twenty Week Elver Update Ultra Sound Date Fundal Height At Umbil Quickening Date Ultra Sound Latest Weeks Gestation Final Elver Confirmed By Final Elver Confirmed Date Final Elver Date Ultra Sound Latest Days Gestation 0 0 Menstrual History Last Menstrual Date Menses Monthly On Bcp Conception Prior Menses Frequency Hcg Plus Date Menarche Onset Age Delivery Information Delivery Date Delivery Type Labor Anesthesia Weeks Gestation Incision Type Labor Labor Length Hrs Delivered By Post Complications Tubal Sterilization Discharge Date Comments 8 Discharge Information Feeding Method Contraceptive Method Maternal HG B and HCT Levels Ob Episode Information Episode Created Date Number of Fetuses Patient Bloodtype Patient rh Status Prepregnancy Weight lbs Domestic Partner Domestic Partner Phone Father Name Molding And Trim Installer Status 10/02/19 22 1 CLOSED Fetus Data First Name Last Name Admitted to NICU Weight (g) Sex Living Outcome Pediatric Complications Fetus ID Race Codes Race Delivery Type , Spontane ous [id number] Elver Calculation Initial Elver Date Initial Exam Date Initial Exam Provider Initial Ultrasound Date Last Menstrual Period Date Ultra Sound Weeks Gestation 0 Eighteen To Twenty Week Elver Update Ultra Sound Date Fundal Height At Umbil Quickening Date Ultra Sound Latest Weeks Gestation Final Elver Confirmed By Final Elver Confirmed Date Final Elver Date Ultra Sound Latest Days Gestation 0 0 Menstrual History Last Menstrual Date Menses Monthly On Bcp Conception Prior Menses Frequency Hcg Plus Date Menarche Onset Age Delivery Information Delivery Date Delivery Type Labor Anesthesia Weeks Gestation Incision Type Labor Labor Length Hrs Delivered By Post Complications Tubal Sterilization Discharge Date Comments 1 Discharge Information Feeding Method Contraceptive Method Maternal HG B and HCT Levels
== END 2025-05-25 14:45 | disposition home or self-care (01) ==
LOC: ANHFOHIMG 14:46
PROVIDERS: PCP Nurse Practitioner; Visit Provider Obstetrics & Gynecology
DX: Z12.31 Encounter for screening mammogram for malignant neoplasm of breast (principal); R92.8 Other abnormal and inconclusive findings on diagnostic imaging of breast
CPT/HCPCS: 77063; 77067